=== PATIENT | female | born 1940 | race Caucasian/White ===

== ENCOUNTER 2022-07-08 13:13 | Emergency (ER) | payer OTHER ==
[~2022-07-08] VITALS: Ht 160 cm; Wt 69.4 kg
--- NOTE | 2022-07-08 13:20 | NUR ---
ER DR. ASIF AT THE BEDSIDE EXAMINING PT
[2022-07-08 13:23] VITALS: BP_SYST 150
--- NOTE | 2022-07-08 13:25 | NUR ---
Placed in room 08 . Placed on ride operator, blood pressure machine and pulse oximeter. To gown for exam. Side rails up. Report given to SIMONA MUNOZ.
--- NOTE | 2022-07-08 13:44 | NUR ---
pt presents to ed with report of nose bleed since this am. pt is awake a/o x4 and verbally responsive. pt reports this happens some times, and takes over the counter aspirin daily. pt is sitting upright in gurney, no acute distress noted. breathing even and unlabored. bleeding controlled at this time. pt denies any dizziness or headaches at this time and denies any injuries.
[2022-07-08 14:48] VITALS: BP_SYST 150
--- NOTE | 2022-07-08 14:48 | NUR ---
Patient given written and verbal discharge instructions and verbalizes understanding. ER MD discussed with patient the results and treatment provided. Patient in stable condition. ID arm band removed. No Rx given. Patient educated on pain management and to follow up with PMD. Pain Scale 2/10 Opportunity for questions provided and answered. Medication side effect fact sheet provided.
== END 2022-07-08 14:48 | disposition home or self-care (01) ==
LOC: SED 13:13
DX: R04.0 Epistaxis (principal); Z79.899 Other long term (current) drug therapy
CPT/HCPCS: 99284